=== PATIENT | female | born 1990 | race Caucasian/White ===

== ENCOUNTER 2017-06-30 08:26 | Emergency (ER) | payer BC, MEDICAID ==
[2017-06-30] MEDS ORDERED: TETRACAINE HCL 150 DROP BTL ONE (08:41)
[2017-06-30 09:31] VITALS: BP 132/74
--- NOTE | 2017-06-30 09:32 | ERNOTE ---
ENT HPI Presenting Symptoms: eye pain Time Seen by Provider: 06/30/17 08:34 Source: patient Exam Limitations: no limitations - Immun/Allergies/Home Medications Allergies/Adverse Reactions: Allergies Allergy/AdvReac Type Severity Reaction Status Date / Time No Known Allergies Allergy Unverified 11/17/12 13:58 Home Medications: HOME MEDICATIONS NK [No Home Medication] 11/17/12 [Last Taken Unknown] - History of Present Illness Narrative: Patient woke up two days ago with a foreign body feeling in her right eye. she does not remember any injuries or anything flying into her eye. 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 Date (Duration): 06/28/17 ENT Location: Present: eye (R) Prearrival Treatment: Present: no prearrival treatment Modifying Factors - Improves: Reports: nothing Modifying Factors - Worsens: Reports: other - blinking Associated Symptoms - ENT: Denies: denies symptoms, fever, cough, nasal congestion/drainage, facial pain/swelling, trauma Prior Treament: Denies: recently seen, similar symptoms before Review of Systems - Review of Systems Constitutional: Absent: recent illness, fever EYE: Present: see HPI, eye pain. Absent: eye discharge, vision changes ENT: Absent: nose congestion, sore throat Respiratory: Absent: shortness of breath, cough Cardiology: Absent: chest pain Gastrointestinal/Abdominal: Absent: nausea, vomiting, abdominal pain Genitourinary: Present: no symptoms reported Musculoskeletal: Present: no symptoms reported Skin: Present: no symptoms reported Neurological: Absent: headache, weakness, numbness - Patient's Past Medical History Patient History - Medical: No pertinent hx Patient History - Cardiac/Respiratory: No pertinent hx Patient History - Cancer: No Hx of Cancer Patient History - Surgical Procedures: Ear Tubes Patient History - Other: None - Social History Living Situations: home Psych History: No pertinent hx Smoking Status: Never smoker Alcohol Use: none Drug Use: none - Immunizations Immunizations Up to Date: No Hx Pneumococcal Vaccination: No History of Influenza Vaccine: No Physical Exam - Physical Exam General Appearance: Present: wd/wn, alert, no apparent distress Head Exam: Present: normal inspection, no evidence of injury Eye Exam: Normal inspection: left, PERRL: bilateral, EOMI: bilateral, Other: right - foreing body (splinter?) laterally Ears, Nose, Throat: Present: normal pharynx Neck: Present: normal inspection Respiratory: Present: no respiratory distress, normal breath sounds, no accessory muscle use, lungs clear Cardiovascular/Chest: Present: regular rate, rhythm, no murmur Neurological Exam: Present: alert, oriented, normal mood/affect Skin Exam: Present: normal color, warm/dry ED Progress - Vital Signs Patient's Vital Signs:: I have reviewed the patient's vital signs. - Progress/Reassessment Progress Note-Subjective: 06/30/17 09:21 talked to [facility] they will see patient at 13:30 this afternoon discussed plan with patient Procedures Eye Location: right eye Tetracaine Drops Administered: Yes Cyclogel 2 Drops Administered: right eye Eye - Cornea: Right: examined w/fluorescein, fluorescein dye uptake - none, foreign body - right lateral sclera 9 o'clock Eye FB Removal: no removal w/ cotton swab - attempted removal, not successfull Departure Clinical Impression: Foreign body of sclera of right eye Qualifiers: Encounter type: initial encounter Qualified Code(s): T15.81XA - Foreign body in other and multiple parts of external eye, right eye, initial encounter - Departure Disposition: Home self-care Condition: Good Instructions: Eye Foreign Body, [id number] Additional Instructions: [facility] will see you at 1:30 pm they are located in the [facility] in [place] 3rd Floor, [address]
== END 2017-06-30 09:32 | disposition home or self-care (01) ==
LOC: ER 08:26
PROC: 08C0XZZ Extirpation of Matter from Right Eye, External Approach (ICD-10-PCS; principal; 2017-06-30)
DX: T15.81XA Foreign body in other and multiple parts of external eye, right eye, initial encounter (principal)